=== PATIENT | male | born 1965 | race Caucasian/White ===

== ENCOUNTER 2017-02-14 02:31 | Emergency (ER) | payer SELFPAY ==
[2017-02-14 02:43] VITALS: RESP 16; TEMP 98.1
[2017-02-14] MEDS ORDERED: TDAP ADULT 0.5 ML INJ (BOOSTRIX) IM ONE (03:32)
[2017-02-14] MEDS ORDERED: SKIN ADHESIVE (DERMABOND) 1 EACH TP ONE (03:36)
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
[2017-02-14 04:23] VITALS: BP 118/70; PULSE 75; O2SAT 97
== END 2017-02-14 04:23 | disposition home or self-care (01) ==
LOC: EDUNIT#
PROC: 0HQ2XZZ Repair Right Ear Skin, External Approach (ICD-10-PCS; principal; 2017-02-14)
DX: S43.101A Unspecified dislocation of right acromioclavicular joint, initial encounter (principal); S01.311A Laceration without foreign body of right ear, initial encounter; F17.200 Nicotine dependence, unspecified, uncomplicated; V29.9XXA Motorcycle rider (driver) (passenger) injured in unspecified traffic accident, initial encounter

== ENCOUNTER → 2017-02-27 | Outpatient (CLI) | payer OTHER | LOC: FIMAGING 07:49 | PROVIDERS: ATTEND Orthopaedic Surgery Hand Surgery | DX: S42.121 Displaced fracture of acromial process, right shoulder (principal) ==